=== PATIENT | male | born 1990 | race African-American/Black ===

== ENCOUNTER → 2016-12-19 | Outpatient (CLI) | payer BC | LOC: COL.RAD 08:25 | DX: M25.852 Other specified joint disorders, left hip (principal); S73.192A Other sprain of left hip, initial encounter; Z98.890 Other specified postprocedural states; M25.552 Pain in left hip | CPT/HCPCS: A9585; Q9967 ==

== ENCOUNTER 2017-03-21 09:45 | Outpatient (RCR) | payer BC | END 2017-05-20 | disposition still patient (30) | LOC: MKS.ESL.PT | DX: M25.552 Pain in left hip (principal); R53.1 Weakness; Q65.89 Other specified congenital deformities of hip ==